=== PATIENT | female | born 1985 | race African-American/Black ===

== ENCOUNTER 2016-11-05 01:45 | Emergency (ER) | payer OTHER ==
[2016-11-05 01:12] LABS: INFLUENZA A NEG (NEG); INFLUENZA B POS (NEG)
[~2016-11-05 01:45] MED LIST: ACYCLOVIR PO; AMOXIL500 MG PO; DELSYM30 MG/5 M1 PO
== END 2016-11-05 02:00 | disposition home or self-care (01) ==
LOC: CED 01:45
PROVIDERS: Emergency Medicine
DX: J10.1 Influenza due to other identified influenza virus with other respiratory manifestations (principal)
CPT/HCPCS: 87804; 87880; 96372; 99283; J0561; J1885